=== PATIENT | female | born 1975 | race Caucasian/White ===

== ENCOUNTER 2017-06-14 20:26 | Observation (INO) ==
--- OUTSIDE RECORDS SUMMARY | 2017-06-14 20:38 | External Medical Summary | Referral Summary ---
:1975 Author Organization [facility] [address] [place] [id number] Care Team Providers Name Role Phone Ej Allen Primary Care Physician Encounter VC Date(s): 08/16/15 - 08/16/15 [facility] [address] [place] [phone] [phone] Discharge Diagnosis: Benign essential HTN Discharge Diagnosis: Tobacco use Discharge Diagnosis: Peripheral vascular disease Discharge Diagnosis: Hyperlipidemia Discharge Disposition: 01-Home or Self Care Attending Physician: Ej Allen MD Admitting Physician: Ej Allen MD Vital Signs Most recent to oldest [Reference Range]: 1 Temperature Tympanic [36.6-38.1 degC] 36.7 degC (08/16/15 8:02 AM) Peripheral Pulse Rate [60-100 bpm] 84 bpm (08/16/15 8:02 AM) Respiratory Rate [14-20 br/min] 16 br/min (08/16/15 8:02 AM) Blood Pressure [90-140/60-90 mmHg] 114/80 mmHg (08/16/15 8:02 AM) Problem List No data available for this section Allergies, Adverse Reactions, Alerts No Known Medication Allergies Medications aspirin 81 mg oral tablet 81 mg 1 tabs, Oral, Daily, # 90 tabs, 0 Refill(s) Start Date: 08/16/15 Status: OrderedLipitor 40 mg oral tablet 40 mg 1 tabs, Oral, Daily, # 90 tabs, 0 Refill(s) Start Date: 08/16/15 Status: OrderedNorvasc 5 mg oral tablet 5 mg 1 tabs, Oral, Daily, # 90 tabs, 0 Refill(s) Start Date: 08/16/15 Status: OrderedWellbutrin SR 150 mg/12 hours oral tablet, extended release 150 mg 1 tabs, Oral, BID, # 60 tabs, 3 Refill(s), Pharmacy: [id number], 1 tabs Oral BID Start Date: 08/16/15 Status: OrderedZantac as needed for Gerd/ heartburn, 0 Refill(s) Start Date: 08/16/15 Status: Ordered Results No data available for this section Immunizations No data available for this section Procedures No data available for this section Social History Social History Type Response Smoking Status Current every day smoker; Type: Cigarettes; Tobacco use per day : More than 1 pack; Number of years: 31; Started at age: 9; Ready to change: Yes Assessment and Plan Extracted from: Title: Office Visit Note Author: Ej Allen MD Date: 08/16/15 Assessment/Plan Benign essential HTN Blood pressure is adequately controlled today. She' ll continue to follow Dr. Uribe as well. No changes in current medications are recommended. Hyperlipidemia Continue current treatment plan without change will see if we can get information from Dr. Uribe regarding recent laboratory studies. Peripheral vascular disease No change in current treatment. Smoking cessation encouraged. Tobacco use We discussed her tobacco usage andattempts at smoking cessation. I encouraged her touse the [employer] quit website. We talked about options as far as what could be beneficial for her in smoking cessation and I elected to put her [id number] mg twice a day. I've asked her to take itonce a day for 3-4 days and then increase to twice a day. Stopped smoking approximately 2 weeks after starting the medication. She'll let me know if she's having further problems or concerns. Ordered: Office Visit Level 2 New [id number] Orders: buPROPion, 150 mg 1 tabs, Oral, BID, # 60 tabs, 3 Refill(s), Pharmacy : [id number], 1 tabs Oral BID
[2017-06-14] MEDS ORDERED: DiltiaZEM 25 MG/5 ML INJECTION IVP ONE ×2 (20:39→22:13)
[2017-06-14] MEDS ORDERED: NS 1,000 ML IV ONE (20:39)
--- NOTE | 2017-06-14 20:45 | Emergency Department Report ---
Cardiac General HPI - General Stated Complaint: heart racing Time Seen by Provider: 06/14/17 20:30 Source: patient Mode of arrival: ambulatory Limitations: no limitations - History of Present Illness HPI narrative: She presents with one hour history of sudden onset palpitations with a pounding rapid pulse, lightheadedness, chest pressure and a feeling of shortness of breath. Patient was walking across her kitchen floor when the symptoms began. Patient has had occasional heart flutters over the past months, saw Dr. Baum earlier this week, and is scheduled to have a heart monitor placed next week. Patient has cardiac risk factors that include morbid obesity, smoking for 30+ years, hypertension, hypercholesterolemia. Patient has never had a heart attack or stroke to her knowledge. - Related Data Home Medications Medication Instructions Recorded Confirmed raNITIdine HCl [Zantac] 150 mg PO BID PRN #0 tab 05/27/14 06/14/17 Amlodipine [Norvasc] 5 mg PO HS 06/14/17 06/14/17 Aspirin [Aspirin EC] 81 mg PO HS 06/14/17 06/14/17 Previous Rx's Medication Instructions Recorded Atorvastatin [Lipitor] 40 mg PO HS #30 tab 05/30/14 Allergies Allergy/AdvReac Type Severity Reaction Status Date / Time No Known Allergies Allergy Unknown Verified 06/14/17 20:45 Review of Systems All systems: reviewed and negative except as stated PFSH Patient Stated Medical History Hypertension Yes Gastroesophageal Reflux Yes Disease Substance Use Disorder Yes: MARIJUANA 1-2 TIMES IN THE LAST YEAR Clinic Medical History (Last Updated 02/22/17 @ 10:48 by Jairon Isaacs CNA) High cholesterol (Acute Medical) Hypertension (Acute Medical) Surgical History: *Gallbladder. *Tubal - Social History Smoking status: Current every day smoker Substance use type: does not use Alcohol intake frequency: does not drink Physical Exam - Limitations Limitations: no limitations - General General appearance: alert - Normal Exams: Head:: Normocephalic without trauma Eyes:: Pupils are PERRLA w/ EOMI, No scleral icterus, irritation, or foreign bodies noted ENMT:: No facial trauma, nasal exudates, pharyngeal erythema, or exudates are noted Neck:: Full range of motion, without adenopathy, JVD, bruits or thyromegaly Chest/Respirations:: Clear all castellanos, with good airflow, and symmetry bilaterally Abdomen:: Bowel sounds positive, soft, non-tender, non-distended, no hepatosplenomegaly, masses or bruits noted Lymphatic:: No lymphadenopathy, or lymphedema noted Musculoskeletal:: No tenderness, or deformity noted, good range of motion, all extremities Integumentary:: No rashes, hives, or bruising noted, hair and nails, without abnormality Neurological:: Patient is alert, and oriented, cranial nerves, motor/sensory/ cerebellar, exams w/o gross deficits, to observation Psychiatric:: Patient exhibits, appropriate attention, emotion and affect - Cardiovascular Cardiovascular exam: Present: tachycardia, normal heart sounds. Absent: regular rate, normal rhythm Course Vital Signs Temperature 97.6 F 06/14/17 20:26 Pulse Rate 126 H 06/14/17 20:26 Respiratory Rate 20 06/14/17 20:26 Blood Pressure 115/70 06/14/17 20:26 Pulse Oximetry 99 06/14/17 20:26 Temperature 97.6 F 06/14/17 20:26 Pulse Rate 126 H 06/14/17 20:26 Respiratory Rate 20 06/14/17 20:26 Blood Pressure 115/70 06/14/17 20:26 Pulse Oximetry 99 06/14/17 20:26 Cardiac General - MDM Narrative Medical decision making narrative: EKG shows atrial fibrillation with RVR, no ischemia or ectopy CBC - n CMP/troponin - n Patient is given Cardizem 15 mg and 1 L normal saline IV fluid bolus. Minimal improvement, then return back to tachycardia in the 130s to 140s with atrial fibrillation/RVR. Patient given additional 25 mg Cardizem IV - good rate control with ventricular rate in the 90s, however patient has not converted to sinus rhythm. Cardizem drip is ordered, - Lab Data Result diagrams: 06/14/17 20:49 06/14/17 20:49 Lab Results 06/14/17 06/14/17 Range/Units 20:49 20:49 WBC 11.0 (4.5-11.0) T/MM3 RBC 4.75 (4.00-5.20) M/MM3 Hgb 15.5 (12-16) GM/DL Hct 44.2 (36-46) % MCV 93.1 (80-100) UM3 MCH 32.6 (26-34) UUG MCHC 35.1 (31-37) GM/DL RDW Std Deviation 42.9 (36.9-50.2) FL Plt Count 338 (130-400) T/MM3 MPV 9.0 L (9.4-12.4) UM3 Immature Gran % (Auto) 0.1 (0.0-0.5) % Neut % (Auto) 61.6 (33-66) % Lymph % (Auto) 28.8 (23-45) % Mora % (Auto) 6.8 (0-9.0) % Eos % (Auto) 2.2 (0-4) % Baso % (Auto) 0.5 (0-2) % Neut # (Auto) 6.8 (1.8-7.7) T/MM3 Lymph # (Auto) 3.2 (1-4.8) T/MM3 Mora # (Auto) 0.8 (0-0.8) T/MM3 Eos # (Auto) 0.2 (0-0.5) T/MM3 Baso # (Auto) 0.1 (0-0.2) T/MM3 Abs Immat Gran (auto) 0.01 (0.00-0.03) T/MM3 Turbidity < 20 (0-20) Sodium 144 (134-144) MEQ/L Potassium 3.7 (3.6-5) MEQ/L Chloride 111 H (98-107) MEQ/L Carbon Dioxide 22 (22-30) MEQ/L Anion Gap 11 (5-15) MEQ/L BUN 11.0 (7-17) MG/DL Creatinine 1.0 (0.7-1.2) MG/DL GFR Calculation 61 BUN/Creatinine Ratio 11 (6-26) RATIO Glucose 113 H (65-110) MG/DL Calculated Osmolality 277 (261-280) MOSM/KG Calcium 9.4 (8.4-10.2) MG/DL Total Bilirubin 0.30 (0.20-1.30) MG/DL Conjugated Bilirubin 0.00 (0.00-0.30) MG/DL Unconjugated Bilirubin 0.00 (0.00-1.1) MG/DL Icterus Index < 2 (0-7) AST 18 (14-36) U/L ALT 28 (9-52) U/L Alkaline Phosphatase 82 (38-126) U/L Troponin I < 0.012 (0-0.12) ng/ml Total Protein 7.6 (6.3-8.2) G/DL Albumin 4.4 (3.5-5.0) G/DL Globulin 3.2 (2.4-3.6) G/DL Albumin/Globulin Ratio 1.4 (1.1-2.2) RATIO Specimen Hemolysis < 15 (0-25) Disposition Clinical Impression: Atrial fibrillation with RVR Disposition: 02 To [facility] Condition: Improved Prescriptions: No Action Atorvastatin [Lipitor] 40 mg PO HS #30 tab Aspirin [Aspirin EC] 81 mg PO HS raNITIdine HCl [Zantac] 150 mg PO BID PRN #0 tab PRN Reason: Prn Orders Amlodipine [Norvasc] 5 mg PO HS Referrals: Ej Allen MD [Primary Care Provider] - - Seen By: physician
[2017-06-14] MEDS: SALINE FLUSH 10ml SYRINGE IVF PRN ×2 (20:58→22:20)
[2017-06-14] MEDS ORDERED: DiltiaZEM Drip 125 MG in NS 125 ML IV SCH (22:30)
[2017-06-14 23:26] VITALS: BMI 41.8
[2017-06-15] MEDS ORDERED: AMLODIPINE 5 MG TABLET PO SCH (00:05)
[2017-06-15] MEDS ORDERED: ATORVASTATIN 40 MG TABLET PO SCH (00:06)
[2017-06-15] MEDS ORDERED: ENOXAPARIN 120 MG/0.8 ML INJECTION SQ SCH ×2 (00:15→09:00)
[2017-06-15] MEDS ORDERED: AMIODARONE 900 MG in NS 500ml 500 ML IV SCH (00:15)
[2017-06-15 06:19] VITALS: RESP 23
[2017-06-15 08:09] VITALS: TEMP 97.6
[2017-06-15] MEDS ORDERED: RANITIDINE 150 MG TABLET PO PRN (08:35)
--- NOTE | 2017-06-15 13:36 | Cardiology History & Physical ---
History of Present Illness Chief complaint: palpitations HPI: Marissa is a 42 year old who is well known to Dr. Baum with a history of palpitations, HTN and HLD. She presented with one hour history of sudden onset palpitations with a pounding rapid pulse, lightheadedness. She reportedly was walking across her kitchen floor when the symptoms began, this was after going to dinner and drinking a large vinay. She saw Dr. Baum earlier this week , and is scheduled to have a heart monitor placed next week. Other cardiac risk factors include morbid obesity, smoking for 30+ years. She has never had a heart attack or stroke to her knowledge. She denies recent illness, fever, chills, cough, sore throat, chest pain, dyspnea, N/V/D, dysuria. Review of Systems - Constitutional Constitutional: Present: as per HPI. Absent: chills, fever(s) - EENMT Eyes: Absent: change in vision Balance: Absent: vertigo Mouth/Throat: Absent: sore throat - Cardiovascular Cardiovascular: Present: palpitations. Absent: chest pain, syncope, dyspnea on exertion, orthopnea, edema Vascular: Absent: pedal edema - Respiratory Respiratory: Absent: cough, dyspnea, dyspnea on exertion - Gastrointestinal Gastrointestinal: Absent: abdominal pain, diarrhea, nausea, vomiting - Genitourinary Genitourinary: Absent: dysuria - Integumentary/Breasts Integumentary: Absent: rash - Neurological Neurological: Absent: dizziness - Endocrine Endocrine: Present: palpitations PFS Patient Stated Medical History Hypertension Yes Bronchitis Yes: Last was 3 years ago Gastroesophageal Reflux Yes Disease Substance Use Disorder Yes: MARIJUANA 1-2 TIMES IN THE LAST YEAR Clinic Medical History (Last Updated 02/22/17 @ 10:48 by Jairon Isaacs CNA) High cholesterol (Acute Medical) Hypertension (Acute Medical) Surgical History: *Gallbladder. *Tubal Family History: Maternal grandfather - CVA No family history of MA, CAD, CHF - Social History Smoking status: Current every day smoker Substance use type: marijuana (occasional) Alcohol intake frequency: holidays/special occasions only Housing: house Household members: spouse, children Current occupational status: unemployed Current residence: Apartment/Private Home Medications Home Medications Medication Instructions Recorded Confirmed Type raNITIdine HCl [Zantac] 150 mg PO BID PRN #0 tab 05/27/14 06/14/17 History Amlodipine [Norvasc] 5 mg PO HS 06/14/17 06/14/17 History Aspirin [Aspirin EC] 81 mg PO HS 06/14/17 06/14/17 History Allergies Allergy/AdvReac Type Severity Reaction Status Date / Time No Known Allergies Allergy Unknown Verified 06/14/17 20:45 Exam Vital signs: Temperature 97.6 F 06/15/17 11:45 Pulse Rate 75 06/15/17 11:00 Respiratory Rate 23 06/15/17 07:00 Blood Pressure 115/58 06/15/17 07:00 Pulse Oximetry 93 06/15/17 07:00 - Constitutional no acute distress, obese, cooperative - Routine HEENT Exam Head: Present: normocephalic ENT: Present: mucous membranes moist - Routine Neck Exam Absent: JVD, carotid bruit - Routine Chest/Breast/Axilla Exam Chest wall: Absent: tenderness - Routine Respiratory Exam Present: CTA bilaterally, diminished air movement (bases). Absent: rales, wheezes - Routine Cardiovascular Exam Present: RRR, no murmur. Absent: JVD - Routine Abdominal Exam Present: soft, normoactive bowel sounds - Routine Extremities Exam Present: no edema - Routine Skin Exam Present: intact, dry, warm - Routine Neurological Exam Present: alert, oriented X3 - Routine Psychiatric Exam Present: normal affect, normal thought process Results 06/15/17 09:09 06/15/17 09:09 CBC 06/15/17 Range/Units 09:09 WBC 9.7 (4.5-11.0) T/MM3 RBC 4.31 (4.00-5.20) M/MM3 Hgb 14.2 (12-16) GM/DL Hct 41.0 (36-46) % Plt Count 319 (130-400) T/MM3 Comprehensive Metabolic Panel 06/15/17 Range/Units 09:09 Sodium 141 (134-144) MEQ/L Potassium 3.9 (3.6-5) MEQ/L Chloride 111 H (98-107) MEQ/L Carbon Dioxide 23 (22-30) MEQ/L BUN 13.0 (7-17) MG/DL Creatinine 0.9 (0.7-1.2) MG/DL Glucose 126 H (65-110) MG/DL Calcium 8.7 (8.4-10.2) MG/DL Intake and Output 06/14/17 06/15/17 06/15/17 22:59 06:59 14:59 Intake Total 336.215 / 336.215 442.66 / 442.66 Output Total 500 / 500 Balance -163.785 / -163.785 442.66 / 442.66 Intake: IV 96.215 / 96.215 16.66 / 16.66 Amiodarone 900 mg In NS 500ml 86.632 / 86.632 16.66 / 16.66 500 ml @ 0.5 MG/MIN 16.66 mls/ hr IV .Q24H [facility] Rx#:[id number] DiltiaZEM Drip 125 mg In Ns 125 9.583 / 9.583 ml @ 5 mls/hr IV .Q24H [facility] Rx# :[id number] Oral 240 / 240 426 / 426 Output: Urine 500 / 500 Other: Urine Appearance Clear Urine Color Pale Normal for Patient Yellow # Voids 1 Weight 243 lb 13.3 oz 239 lb 13.807 oz Patient Weight 06/16/17 06:59 Weight 239 lb 13.807 oz - EKG Interpretation EKG: sinus rhythm EKG interpretations - EKG EKG results cardiology: sinus rhythm - Dysrhythmias Sinus rhythms and dysrhythmias: sinus rhythm - Blocks, axis, hypertrophy, ST abn QRS axis and voltage: left axis deviation (-30 to -90) Hospital Course This is a general summary of the patient's hospital course. For more details refer to the complete medical record. Time spent with patient: 25 - 35 minutes Resuscitation Status: Full Code Assessment and Plan - Assessment and Plan (1) Atrial fibrillation with RVR Status: Acute Converted after Cardizem X2 to SR - Started on Amiodarone drip. - No antiarrhythmic therapy needed at this time. - Discussed pathophysiology of Atrial fibrillation at length and things that can exacerbate the condition. - CHADS2 is 2 so Aspirin 81mg daily for stroke prevention (2) Essential (primary) hypertension Status: Chronic Discussed importance of controlling BP - Takes Amlodipine (3) Mixed hyperlipidemia Status: Chronic Takes Atorvastatin (4) Obesity Status: Chronic (5) Nicotine dependence Status: Chronic
--- NOTE | 2017-06-15 13:48 | Discharge Summary ---
Discharge Information Date of admission: 06/14/17 22:28 Anticipated date of discharge: 06/15/17 Attending Physician: Todd Baum MD Primary care physician: Ej Allen MD - Discharge Diagnosis (1) Atrial fibrillation with RVR Status: Acute (2) Essential (primary) hypertension Status: Chronic (3) Mixed hyperlipidemia Status: Chronic (4) Obesity Status: Chronic (5) Nicotine dependence Status: Chronic Atrial fibrillation - Laboratory Labs: 06/15/17 09:09 06/15/17 09:09 History of Present Illness HPI: Marissa is a 42 year old who is well known to Dr. Baum with a history of palpitations, HTN and HLD. She presented with one hour history of sudden onset palpitations with a pounding rapid pulse, lightheadedness. She reportedly was walking across her kitchen floor when the symptoms began, this was after going to dinner and drinking a large vinay. She saw Dr. Baum earlier this week , and is scheduled to have a heart monitor placed next week. Other cardiac risk factors include morbid obesity, smoking for 30+ years. She has never had a heart attack or stroke to her knowledge. She denies recent illness, fever, chills, cough, sore throat, chest pain, dyspnea, N/V/D, dysuria. Hospital Course This is a general summary of the patient's hospital course. For more details refer to the complete medical record. Time spent with patient: 25 - 35 minutes Resuscitation Status: Full Code Exam Vital signs: Temperature 97.6 F 06/15/17 11:45 Pulse Rate 75 06/15/17 11:00 Respiratory Rate 23 06/15/17 07:00 Blood Pressure 115/58 06/15/17 07:00 Pulse Oximetry 93 06/15/17 07:00 - Constitutional no acute distress, well nourished, cooperative - Routine HEENT Exam Head: Present: normocephalic ENT: Present: mucous membranes moist - Routine Neck Exam Absent: JVD, carotid bruit - Routine Chest/Breast/Axilla Exam Chest wall: Absent: tenderness - Routine Respiratory Exam Present: CTA bilaterally. Absent: rales, wheezes - Routine Cardiovascular Exam Present: RRR, no murmur. Absent: JVD - Routine Abdominal Exam Present: soft, normoactive bowel sounds - Routine Extremities Exam Present: no edema - Routine Skin Exam Present: intact, dry, warm - Routine Neurological Exam Present: alert, oriented X3 - Routine Psychiatric Exam Present: normal affect, normal thought process Results 06/15/17 09:09 06/15/17 09:09 CBC 06/15/17 Range/Units 09:09 WBC 9.7 (4.5-11.0) T/MM3 RBC 4.31 (4.00-5.20) M/MM3 Hgb 14.2 (12-16) GM/DL Hct 41.0 (36-46) % Plt Count 319 (130-400) T/MM3 Comprehensive Metabolic Panel 06/15/17 Range/Units 09:09 Sodium 141 (134-144) MEQ/L Potassium 3.9 (3.6-5) MEQ/L Chloride 111 H (98-107) MEQ/L Carbon Dioxide 23 (22-30) MEQ/L BUN 13.0 (7-17) MG/DL Creatinine 0.9 (0.7-1.2) MG/DL Glucose 126 H (65-110) MG/DL Calcium 8.7 (8.4-10.2) MG/DL Intake and Output 06/14/17 06/15/17 06/15/17 22:59 06:59 14:59 Intake Total 336.215 / 336.215 442.66 / 442.66 Output Total 500 / 500 Balance -163.785 / -163.785 442.66 / 442.66 Intake: IV 96.215 / 96.215 16.66 / 16.66 Amiodarone 900 mg In NS 500ml 86.632 / 86.632 16.66 / 16.66 500 ml @ 0.5 MG/MIN 16.66 mls/ hr IV .Q24H [facility] Rx#:[id number] DiltiaZEM Drip 125 mg In Ns 125 9.583 / 9.583 ml @ 5 mls/hr IV .Q24H [facility] Rx# :[id number] Oral 240 / 240 426 / 426 Output: Urine 500 / 500 Other: Urine Appearance Clear Urine Color Pale Normal for Patient Yellow # Voids 1 Weight 243 lb 13.3 oz 239 lb 13.807 oz Patient Weight 06/16/17 06:59 Weight 239 lb 13.807 oz - EKG Interpretation EKG: sinus rhythm Discharge Plan - Med Rec/Dispo Referrals/Follow Up: Todd Baum MD [Physician] - 07/07/17 [facility] Instructions: A-fib (Atrial Fibrillation) (DC), Heart Healthy Diet (DC) , Hypertension (DC) Prescriptions: Continue Atorvastatin [Lipitor] 40 mg PO HS #30 tab Aspirin [Aspirin EC] 81 mg PO HS raNITIdine HCl [Zantac] 150 mg PO BID PRN #0 tab PRN Reason: Prn Orders Amlodipine [Norvasc] 5 mg PO HS - Disposition 01 Discharged Home, Self-Care - Dismissal Complete Discharge Instructions are:: Complete
[2017-06-15 15:49] VITALS: BP 108/59; PULSE 62; O2SAT 97
[2017-06-16] MEDS ORDERED: ENOXAPARIN 120 MG/0.8 ML INJECTION SQ SCH
== END 2017-06-15 14:30 | disposition home or self-care (01) ==
LOC: CCU 20:26 → ED 20:26 → CCU 23:18
PROVIDERS: ADMIT Internal Medicine Cardiovascular Disease; ATTEND Internal Medicine Cardiovascular Disease